=== PATIENT | male | born 1985 | race Caucasian/White ===

== ENCOUNTER 2019-03-20 19:15 | Emergency (ER) | payer MEDICAID ==
[~2019-03-20] VITALS: Ht 175.3 cm; Wt 122.0 kg
[~2019-03-20 19:15] MED LIST: METF500T PO
[2019-03-20 19:43] LABS: CLARITY,URINE CLEAR (Clear); COLOR,URINE YELLOW (Yellow); GLUCOSE, URINE >=1000 mg/dl (Neg); KETONES,URINE NEGATIVE (Neg); LEUKOCYTE ESTERASE ,URINE NEGATIVE (Neg); NITRITES, URINE NEGATIVE (Neg); OCCULT BLOOD,URINE NEGATIVE (Neg); PROTEIN,URINE TRACE mg/dl (Neg); UROBILINOGEN,URINE 0.2 E.U/dL (0.2-1.0)
[2019-03-20 19:46] LABS: UA COLLECTION TYPE VOIDED
[2019-03-20 19:50] LABS: BACTERIA,URINE FEW /HPF (Neg); RBC,URINE 0-2 /HPF (0-2); SQUAMOUS EPITHELIAL CELL,UR FEW /LPF (FEW); WBC,URINE 0-4 /HPF (0-4)
[2019-03-20 20:02] LABS: BASOPHILS # (AUTO) 0.1 X10'3 (0-0.2); BASOPHILS % (AUTO) 1.5 % (0-1); EOSINOPHILS # (AUTO) 0.1 X10'3 (0-0.9); EOSINOPHILS % (AUTO) 2.1 % (0-6); LYMPHOCYTES # (AUTO) 2.9 X10'3 (1.1-4.8); LYMPHOCYTES % (AUTO) 42.4 % (21-51); MEAN PLATELET VOLUME 7.7 FL (7.4-10.4); MONOCYTES # (AUTO) 0.5 X10'3 (0-0.9); MONOCYTES % (AUTO) 6.7 % (2-12); NEUTROPHILS # (AUTO) 3.2 X10'3 (1.8-7.7); NEUTROPHILS % (AUTO) 47.3 % (42-75); PLATELET COUNT 253 X10'3 (140-440); RED BLOOD COUNT 4.93 X10'6 (4.70-6.10); WHITE BLOOD COUNT 6.8 X10'3 (4.5-11.0)
[2019-03-20] MEDS ORDERED: normal saline 1000ML IV soln IVB ONE ×2 (20:10→20:50)
[2019-03-20 20:21] LABS: HEMOGLOBIN 16.7 g/dl (14.0-17.9)
[2019-03-20 20:22] LABS: HEMATOCRIT 47.9 % (42.0-52.0); MEAN CORPUSCULAR HEMOGLOBIN 32.2 PG (27.0-31.0); MEAN CORPUSCULAR HGB CONC 34.9 g/dL (33.0-36.5); MEAN CORPUSCULAR VOLUME 92.4 FL (78-98); RED CELL DISTRIBUTION WIDTH 13.4 % (11.5-14.5)
[2019-03-20 20:33] LABS: ALANINE AMINOTRANSFERASE 234 U/L (12-78); ALBUMIN 3.7 G/DL (3.4-5.0); ALBUMIN/GLOBULIN RATIO 0.8 (1.1-1.5); ALKALINE PHOSPHATASE 198 IU/L (46-116); ANION GAP 14 (8-16); ASPARTATE AMINO TRANSFERASE 107 U/L (10-37); BILIRUBIN,TOTAL 0.3 MG/DL (0.1-1.0); BLOOD UREA NITROGEN 13 MG/DL (7-18); BUN/CREATININE RATIO 13.7 (5.4-32.0); CALCIUM 9.3 MG/DL (8.5-10.1); CHLORIDE 98 MMOL/L (99-107); CREATININE 0.95 MG/DL (0.60-1.10); POTASSIUM 4.6 MMOL/L (3.5-5.1); SODIUM 132 MMOL/L (135-145); TOTAL PROTEIN 8.2 G/DL (6.4-8.2); eGFR > 90 ML/MIN
[2019-03-20] MEDS ORDERED: insulin regular, human 10 units/0.1 ml syringe IV ONE ×2 (20:50)
[2019-03-20] MEDS ORDERED: ondansetron/PF 4mg/2ml inj IV ONE (20:50)
[2019-03-20 20:55] LABS: GLUCOSE 590 MG/DL (70-104)
--- NOTE | 2019-03-20 21:47 | NUR ---
PER DR MARQUES ONLY 3 LITERS OF FLUIDS GIVEN
--- NOTE | 2019-03-20 22:24 | NUR ---
ASSUMED CARE OF PT , WHO IS LYING ON HIS SIDE WATCHING TV ONM HIS PHONE IVF NS TO RIGHT ARM PATETFARHANE WITHOUT INCIDENT REPEATED BLOOD SUGAR CURRENTLY AT [address] MARQUES
[2019-03-20 22:45] VITALS: BP 128/70
== END 2019-03-20 22:48 | disposition home or self-care (01) ==
LOC: ER 19:15
DX: E11.65 Type 2 diabetes mellitus with hyperglycemia (principal)
CPT/HCPCS: 36415; 80053; 81001; 82948; 85025; 85610; 96361; 96374; 96375; 96376; 99283; J1815; J2405; J7030

== ENCOUNTER 2019-06-07 10:17 | Emergency (ER) | payer MEDICAID ==
[~2019-06-07] VITALS: Ht 175.3 cm; Wt 116.5 kg
--- NOTE | 2019-06-07 11:08 | NUR ---
PT OUT TO CT VIA WHEELCHAIR WITH DITCHING MACHINE ENGINEER
[2019-06-07 11:39] LABS: BASOPHILS # (AUTO) 0.1 X10'3 (0-0.2); EOSINOPHILS # (AUTO) 0.2 X10'3 (0-0.9); EOSINOPHILS % (AUTO) 1.6 % (0-6); HEMATOCRIT 46.3 % (42.0-52.0); LYMPHOCYTES # (AUTO) 2.7 X10'3 (1.1-4.8); LYMPHOCYTES % (AUTO) 26.2 % (21-51); MEAN PLATELET VOLUME 7.4 FL (7.4-10.4); MONOCYTES # (AUTO) 0.7 X10'3 (0-0.9); NEUTROPHILS # (AUTO) 6.5 X10'3 (1.8-7.7); NEUTROPHILS % (AUTO) 64.2 % (42-75); PLATELET COUNT 269 X10'3 (140-440); RED BLOOD COUNT 5.09 X10'6 (4.70-6.10); WHITE BLOOD COUNT 10.2 X10'3 (4.5-11.0)
--- NOTE | 2019-06-07 11:39 | NUR ---
PT RETURNS FROM CT
[2019-06-07] MEDS ORDERED: ketorolac trometh. 30mg/ml inj. IV ONE (11:40)
[2019-06-07] MEDS ORDERED: carBAMazepine Ext. Release 200 MG TAB.ER.12H PO SCH (11:40)
[2019-06-07 11:52] LABS: ALANINE AMINOTRANSFERASE 99 U/L (12-78); ALBUMIN 3.4 G/DL (3.4-5.0); ALBUMIN/GLOBULIN RATIO 0.9 (1.1-1.5); ALKALINE PHOSPHATASE 153 IU/L (46-116); ANION GAP 9 (8-16); BILIRUBIN,TOTAL 0.3 MG/DL (0.1-1.0); BLOOD UREA NITROGEN 10 MG/DL (7-18); BUN/CREATININE RATIO 16.7 (5.4-32.0); CALCIUM 8.4 MG/DL (8.5-10.1); CHLORIDE 100 MMOL/L (99-107); ETHANOL < 0.010 GM/DL (0.0-0.010); SODIUM 133 MMOL/L (135-145); TOTAL CARBON DIOXIDE 24.5 MMOL/L (24-32); TOTAL PROTEIN 7.3 G/DL (6.4-8.2); eGFR > 90 ML/MIN
[2019-06-07 11:55] LABS: GLUCOSE 352 MG/DL (70-104); POTASSIUM 4.3 MMOL/L (3.5-5.1)
[2019-06-07 11:56] LABS: HEMOGLOBIN 15.9 g/dl (14.0-17.9); MEAN CORPUSCULAR HEMOGLOBIN 32.1 PG (27.0-31.0); MEAN CORPUSCULAR HGB CONC 35.1 g/dL (33.0-36.5)
[2019-06-07 11:57] LABS: PARTIAL THROMBOPLASTIN TIME 24 SECONDS (22-32)
--- NOTE | 2019-06-07 12:08 | NUR ---
PT CO FEELING LIKE HE HAS A FEVER. oRAL JEROD 99.2
[2019-06-07 12:09] VITALS: BP 167/99
[2019-06-07 12:12] LABS: ASPARTATE AMINO TRANSFERASE 21 U/L (10-37)
[2019-06-07] MEDS ORDERED: normal saline 1000ML IV soln IVB ONE (12:15)
[2019-06-07] MEDS ORDERED: insulin regular, human 10 units/0.1 ml syringe SQ ONE (12:15)
[2019-06-07 12:50] LABS: CLARITY,URINE CLEAR (Clear); COLOR,URINE YELLOW (Yellow); GLUCOSE, URINE >=1000 mg/dl (Neg); KETONES,URINE 15 mg/dl (Neg); LEUKOCYTE ESTERASE ,URINE NEGATIVE (Neg); NITRITES, URINE NEGATIVE (Neg); OCCULT BLOOD,URINE TRACE-INTACT (Neg); PROTEIN,URINE 100 mg/dl (Neg); UA COLLECTION TYPE URINAL; UROBILINOGEN,URINE 0.2 E.U/dL (0.2-1.0)
[2019-06-07 12:57] LABS: BACTERIA,URINE NONE SEEN /HPF (Neg); MUCUS STRANDS NONE SEEN /LPF (Neg); RBC,URINE 0-2 /HPF (0-2); SQUAMOUS EPITHELIAL CELL,UR FEW /LPF (FEW); WBC,URINE 0-4 /HPF (0-4)
[2019-06-07 13:08] LABS: URINE AMPHETAMINE SCREEN NEGATIVE (Neg); URINE BARBITUATE SCREEN NEGATIVE (Neg); URINE BENZODIAZEPINES SCREEN NEGATIVE (Neg); URINE CANNABINOID SCREEN NEGATIVE (Neg); URINE COCAINE SCREEN NEGATIVE (Neg); URINE METHADONE SCREEN NEGATIVE (Neg); URINE OPIATE SCREEN NEGATIVE (Neg); URINE PHENCYCLIDINE SCREEN NEGATIVE (Neg)
[2019-06-07] MEDS ORDERED: CARB200T PO (13:29)
[2019-06-07] MEDS ORDERED: AMOX500C2 PO (13:29)
--- NOTE | 2019-06-07 13:30 | NUR ---
PT STATES THAT HIS BLOOD SUGARS TREND IN THE 300S. PT EDUCATED TO INFOR PCP FOR BETTER BLOOD SUGAR CONTROL
== END 2019-06-07 13:47 | disposition home or self-care (01) ==
LOC: ER 10:18
DX: J32.9 Chronic sinusitis, unspecified (principal); G50.0 Trigeminal neuralgia; E11.65 Type 2 diabetes mellitus with hyperglycemia; R79.1 Abnormal coagulation profile; Z79.899 Other long term (current) drug therapy
CPT/HCPCS: 36415; 70450; 80053; 80305; 80320; 81001; 82948; 84484; 85025; 85610; 85730; 93005; 96372; 96374; 99284; J1815; J1885

== ENCOUNTER 2019-12-23 23:19 | Emergency (ER) | payer MEDICAID ==
[~2019-12-23] VITALS: Ht 175.3 cm; Wt 122.7 kg
[~2019-12-23 23:19] MED LIST changes: +CARB200T PO
[2019-12-23 23:22] VITALS: BP 168/115
== END 2019-12-24 00:22 | disposition home or self-care (01) ==
LOC: ER 23:20
DX: M79.642 Pain in left hand (principal); E11.9 Type 2 diabetes mellitus without complications; F17.200 Nicotine dependence, unspecified, uncomplicated; Z79.899 Other long term (current) drug therapy; Y08.89XA Assault by other specified means, initial encounter
CPT/HCPCS: 29125; 73130; 99283

== ENCOUNTER 2020-10-05 08:35 | Inpatient (IN) | payer MEDICAID ==
[~2020-10-05] VITALS: Ht 175.3 cm; Wt 118.2 kg
[2020-10-05] MEDS ORDERED: normal saline 1000ML IV soln IVB ONE ×2 (09:50→10:55)
[2020-10-05 10:14] LABS: BASOPHILS # (AUTO) 0.1 X10'3 (0-0.2); BASOPHILS % (AUTO) 0.5 % (0-1); EOSINOPHILS # (AUTO) 0.2 X10'3 (0-0.9); EOSINOPHILS % (AUTO) 2.1 % (0-6); HEMATOCRIT 44.3 % (42.0-52.0); HEMOGLOBIN 15.6 g/dl (14.0-17.9); LYMPHOCYTES # (AUTO) 2.4 X10'3 (1.1-4.8); LYMPHOCYTES % (AUTO) 20.5 % (21-51); MEAN CORPUSCULAR HGB CONC 35.3 g/dL (33.0-36.5); MEAN CORPUSCULAR VOLUME 90.7 FL (78-98); MEAN PLATELET VOLUME 7.6 FL (7.4-10.4); MONOCYTES # (AUTO) 1.4 X10'3 (0-0.9); MONOCYTES % (AUTO) 12.1 % (2-12); NEUTROPHILS # (AUTO) 7.5 X10'3 (1.8-7.7); NEUTROPHILS % (AUTO) 64.8 % (42-75); PLATELET COUNT 252 X10'3 (140-440); RED BLOOD COUNT 4.89 X10'6 (4.70-6.10); WHITE BLOOD COUNT 11.6 X10'3 (4.5-11.0)
[2020-10-05 10:30] LABS: ALANINE AMINOTRANSFERASE 45 U/L (12-78); ALBUMIN/GLOBULIN RATIO 0.7 (1.1-1.5); ALKALINE PHOSPHATASE 97 IU/L (46-116); ANION GAP 11 (8-16); ASPARTATE AMINO TRANSFERASE 17 U/L (10-37); BILIRUBIN,TOTAL 0.4 MG/DL (0.1-1.0); BLOOD UREA NITROGEN 10 MG/DL (7-18); BUN/CREATININE RATIO 13.5 (5.4-32.0); C-REACTIVE PROTEIN 15.34 MG/DL (0.0-0.5); CALCIUM 8.5 MG/DL (8.5-10.1); CHLORIDE 100 MMOL/L (99-107); CREATININE 0.74 MG/DL (0.60-1.10); GLUCOSE 313 MG/DL (70-104); POTASSIUM 4.5 MMOL/L (3.5-5.1); SODIUM 134 MMOL/L (135-145); TOTAL CARBON DIOXIDE 23.3 MMOL/L (24-32); TOTAL PROTEIN 7.2 G/DL (6.4-8.2); eGFR > 90 ML/MIN
[2020-10-05] MEDS ORDERED: insulin regular, human 10 units/0.1 ml syringe SQ ONE (10:55)
[2020-10-05] MEDS ORDERED: cephalexin 250mg capsule PO ONE (11:20)
[2020-10-05] MEDS ORDERED: clotrimazole topical cream 15gm tube TP STA (11:20)
[2020-10-05] MEDS ORDERED: HYDROcodone/acetaminophen 5mg/325mg tablet PO ONE (11:55)
[2020-10-05] MEDS ORDERED: vancomycin/NS 1 GM ADD-VANTAGE 250 ML IV ONE (12:15)
[2020-10-05] MEDS ORDERED: piperacillin/tazo 3.375gm/50ml 50 ML IV ONE (12:15)
--- NOTE | 2020-10-05 12:57 | NUR ---
CALLED "BROTHER" JT FOR PATIENT [phone]
[2020-10-05] MEDS ORDERED: potassium Cl 40MEQ/1/2NS 520ml 520 ML IV PRN ×2 (13:05)
[2020-10-05] MEDS ORDERED: potassium Cl 20 mEq SR tablet PO PRN ×2 (13:05)
[2020-10-05] MEDS: normal saline 1000ml 1,000 ML IV SCH ×2 (13:05→23:05)
[2020-10-05] MEDS ORDERED: morphine 2 MG/ML inj. syringe IV PRN (13:05)
[2020-10-05] MEDS ORDERED: ondansetron/PF 4mg/2ml inj IV PRN (13:05)
[2020-10-05] MEDS ORDERED: magnesium 2GM in 50ml NS 50 ML IV PRN (13:05)
[2020-10-05] MEDS ORDERED: magnesium 4gm in 100ml NS 100 ML IV PRN (13:05)
[2020-10-05] MEDS ORDERED: acetaminophen 325mg tablet PO PRN (13:05)
[2020-10-05] MEDS ORDERED: magnesium Cl slow-release 64mg tablet PO PRN (13:05)
--- NOTE | 2020-10-05 13:34 | NUR ---
WU CALLED AND UPDATED [phone] CELL
[2020-10-05] MEDS ORDERED: SULF1TAB45 PO (14:14)
[2020-10-05] MEDS ORDERED: INSU100I31 SQ (14:14)
[2020-10-05] MEDS ORDERED: METF-950 PO (14:14)
[2020-10-05] MEDS ORDERED: LISI10TA27 PO (14:14)
[2020-10-05] MEDS ORDERED: MUPI22OI30 TOP (14:14)
--- NOTE | 2020-10-05 15:00 | NUR ---
brother brought patient a wopper burger which he ate
--- NOTE | 2020-10-05 16:35 | NUR ---
attempted to call report
--- NOTE | 2020-10-05 16:46 | NUR ---
called report to wendy lovett on surgical floor, patient going to room 357b
--- NOTE | 2020-10-05 16:48 | NUR ---
Patient in room ED 11. I have received report from KAMALJIT Vicente and had the opportunity to ask questions and assume patient care.
[2020-10-05] MEDS: HYDROcodone/acetaminophen 5mg/325mg tablet PO PRN ×2 (16:52→21:30)
[2020-10-05] MEDS ORDERED: dextrose ORAL solution 15 GM/59 ML bottle PO PRN ×2 (17:45)
[2020-10-05] MEDS ORDERED: MESSAGE TO PHARMACY PO ONE (17:45)
[2020-10-05] MEDS ORDERED: dextrose 50%-water 50ml dispensing syringe IV PRN ×2 (17:45)
[2020-10-05] MEDS ORDERED: glucagon, human recombinant 1mg kit SUBCUT PRN (17:45)
[2020-10-05 17:59] VITALS: BP 142/93
[2020-10-05 18:30] VITALS: BP 136/87
--- NOTE | 2020-10-05 18:30 | NUR ---
Patient in room [facility] 357. I have received report from Laura MARI and had the opportunity to ask questions and assume patient care.
--- NOTE | 2020-10-05 19:26 | NUR ---
Problems reprioritized. Patient report given, questions answered & plan of care reviewed with Enrique Aviles.
[2020-10-05] MEDS: K and/or MAG REPLACEMENT MC SCH (19:59)
[2020-10-05] MEDS: insulin Lispro (HumaLOG) vial - multi-dose SQ SCH ×2 (20:17→22:16)
[2020-10-05] MEDS: vancomycin/NS 1 GM ADD-VANTAGE 250 ML IV SCH (20:20)
--- NOTE | 2020-10-05 20:20 | NUR ---
Late dinner and nutrition only covered d/t accu check being taken 2 hrs earlier. Patient in agreement.
[2020-10-05] MEDS ORDERED: temazepam 15mg capsule PO PRN (21:00)
[2020-10-05] MEDS: mupirocin 2% ointment 22GM TP SCH (21:31)
[2020-10-05] MEDS: insulin glargine (Lantus) pen - multi-dose SQ SCH (22:18)
[2020-10-06] VITALS: BP 111/64
[2020-10-06] MEDS: normal saline 1000ml 1,000 ML IV SCH ×3 (02:17→18:18)
[2020-10-06] MEDS: HYDROcodone/acetaminophen 5mg/325mg tablet PO PRN ×3 (02:18→19:02)
[2020-10-06] MEDS: vancomycin/NS 1 GM ADD-VANTAGE 250 ML IV SCH ×3 (04:32→21:19)
[2020-10-06 06:20] LABS: BASOPHILS # (AUTO) 0.1 X10'3 (0-0.2); BASOPHILS % (AUTO) 0.5 % (0-1); EOSINOPHILS # (AUTO) 0.4 X10'3 (0-0.9); EOSINOPHILS % (AUTO) 3.7 % (0-6); HEMATOCRIT 40.7 % (42.0-52.0); HEMOGLOBIN 14.3 g/dl (14.0-17.9); LYMPHOCYTES # (AUTO) 3.2 X10'3 (1.1-4.8); LYMPHOCYTES % (AUTO) 28.2 % (21-51); MEAN CORPUSCULAR HEMOGLOBIN 32.1 PG (27.0-31.0); MEAN CORPUSCULAR HGB CONC 35.1 g/dL (33.0-36.5); MEAN CORPUSCULAR VOLUME 91.5 FL (78-98); MEAN PLATELET VOLUME 7.9 FL (7.4-10.4); MONOCYTES # (AUTO) 1.1 X10'3 (0-0.9); MONOCYTES % (AUTO) 9.2 % (2-12); NEUTROPHILS # (AUTO) 6.7 X10'3 (1.8-7.7); NEUTROPHILS % (AUTO) 58.4 % (42-75); PLATELET COUNT 262 X10'3 (140-440); RED BLOOD COUNT 4.45 X10'6 (4.70-6.10); RED CELL DISTRIBUTION WIDTH 13.2 % (11.5-14.5); WHITE BLOOD COUNT 11.5 X10'3 (4.5-11.0)
[2020-10-06 06:27] LABS: ALBUMIN 2.6 G/DL (3.4-5.0); ANION GAP 10 (8-16); CHLORIDE 104 MMOL/L (99-107); CREATININE 0.53 MG/DL (0.60-1.10); GLUCOSE 181 MG/DL (70-104); MAGNESIUM 1.8 MG/DL (1.5-2.4); POTASSIUM 3.9 MMOL/L (3.5-5.1); SODIUM 138 MMOL/L (135-145); TOTAL CARBON DIOXIDE 24.4 MMOL/L (24-32); eGFR > 90 ML/MIN
[2020-10-06 06:33] LABS: BLOOD UREA NITROGEN 9 MG/DL (7-18)
--- NOTE | 2020-10-06 06:41 | NUR ---
Patient in room [facility] 345. I have received report from JOCY MARI and had the opportunity to ask questions and assume patient care.
--- NOTE | 2020-10-06 06:45 | NUR ---
Problems reprioritized. Patient report given, questions answered & plan of care reviewed with Jeremiah RN.
[2020-10-06 07:44] VITALS: BP 166/101
[2020-10-06] MEDS ORDERED: insulin glargine (Lantus) pen - multi-dose SQ SCH (08:00)
[2020-10-06] MEDS: K and/or MAG REPLACEMENT MC SCH ×2 (08:00→19:17)
[2020-10-06] MEDS: mupirocin 2% ointment 22GM TP SCH ×3 (08:13→21:21)
[2020-10-06] MEDS: lisinopril 10 MG tablet PO SCH (08:13)
[2020-10-06] MEDS: insulin Lispro (HumaLOG) vial - multi-dose SQ SCH ×4 (09:17→21:34)
[2020-10-06 11:00] VITALS: BP 134/92
[2020-10-06] MEDS ORDERED: VANCOMYCIN LEVEL IV ONE (12:30)
--- NOTE | 2020-10-06 13:59 | NUR ---
DM/Malnutrition Consults: Pt admit DX L foot cellulitis per EMR. Hx DM now insulin dependent w/ Lantus and metformin on med rec per EMR. Pt seen by RD for written/verbal DM ed w/ RD contact information provided. Pt very passive clearly non-compliant w/ DM management stating he "eats what he wants and not what anyone tells him as I'm my own man". Pt requests carb controlled diet be removed by MD and reports will be ordering takeout instead of following DM diet this admit; also reports baseline GLU in 400's typically at home. RD encouraged pt to follow DM diet guidelines, check GLU routinely and takes DM meds per Rx. Pt appears well-developed/well-nourished during RD visit, PO 50-75% avg first 2 meals though sodas from outside also at bedside likely impacting meal PO given non-compliance. Lacks minimum two malnutrition criteria at this time. Addendum: 10/06/20 at [address] Amended: Links added.
--- NOTE | 2020-10-06 18:27 | NUR ---
Problems reprioritized. Patient report given, questions answered & plan of care reviewed with Traci MARI.
--- NOTE | 2020-10-06 18:30 | NUR ---
Patient in room [facility] 357. I have received report from Jeremiha MARI and had the opportunity to ask questions and assume patient care.
[2020-10-06] MEDS: lactobacillus rhamnosus 10,000 MMU CELLS/CAPSULE PO SCH (19:02)
[2020-10-06 19:30] VITALS: BP 148/77
[2020-10-06] MEDS: insulin glargine (Lantus) pen - multi-dose SQ SCH (21:37)
[2020-10-06 23:30] VITALS: BP 114/58
[2020-10-07] MEDS: HYDROcodone/acetaminophen 5mg/325mg tablet PO PRN ×2 (05:02→18:58)
[2020-10-07] MEDS: normal saline 1000ml 1,000 ML IV SCH ×2 (05:03→15:56)
[2020-10-07] MEDS: vancomycin/NS 1 GM ADD-VANTAGE 250 ML IV SCH (05:04)
[2020-10-07 05:59] LABS: BASOPHILS % (AUTO) 0.4 % (0-1); EOSINOPHILS # (AUTO) 0.4 X10'3 (0-0.9); EOSINOPHILS % (AUTO) 4.2 % (0-6); HEMATOCRIT 40.7 % (42.0-52.0); HEMOGLOBIN 14.3 g/dl (14.0-17.9); LYMPHOCYTES # (AUTO) 2.7 X10'3 (1.1-4.8); LYMPHOCYTES % (AUTO) 29.5 % (21-51); MEAN CORPUSCULAR HGB CONC 35.2 g/dL (33.0-36.5); MEAN PLATELET VOLUME 7.6 FL (7.4-10.4); MONOCYTES # (AUTO) 0.9 X10'3 (0-0.9); MONOCYTES % (AUTO) 9.9 % (2-12); NEUTROPHILS # (AUTO) 5.1 X10'3 (1.8-7.7); PLATELET COUNT 279 X10'3 (140-440); RED BLOOD COUNT 4.48 X10'6 (4.70-6.10); RED CELL DISTRIBUTION WIDTH 13.2 % (11.5-14.5)
[2020-10-07 06:00] VITALS: BP 134/84
[2020-10-07 06:17] LABS: ALBUMIN 2.5 G/DL (3.4-5.0); ANION GAP 10 (8-16); BLOOD UREA NITROGEN 6 MG/DL (7-18); BUN/CREATININE RATIO 9.5 (5.4-32.0); CALCIUM 8.2 MG/DL (8.5-10.1); CHLORIDE 103 MMOL/L (99-107); CREATININE 0.63 MG/DL (0.60-1.10); GLUCOSE 215 MG/DL (70-104); MAGNESIUM 1.8 MG/DL (1.5-2.4); SODIUM 139 MMOL/L (135-145); TOTAL CARBON DIOXIDE 25.8 MMOL/L (24-32); eGFR > 90 ML/MIN
--- NOTE | 2020-10-07 06:45 | NUR ---
Problems reprioritized. Patient report given, questions answered & plan of care reviewed with Gabriela MARI.
--- NOTE | 2020-10-07 07:12 | NUR ---
Patient in room [facility] 357B. I have received report from KAMALJIT SANDRA and had the opportunity to ask questions and assume patient care.
[2020-10-07] MEDS: lactobacillus rhamnosus 10,000 MMU CELLS/CAPSULE PO SCH ×2 (07:29→18:58)
[2020-10-07] MEDS: lisinopril 10 MG tablet PO SCH (07:29)
[2020-10-07] MEDS: mupirocin 2% ointment 22GM TP SCH ×3 (07:29→21:08)
[2020-10-07] MEDS: K and/or MAG REPLACEMENT MC SCH ×2 (07:30→20:00)
[2020-10-07] MEDS: insulin Lispro (HumaLOG) vial - multi-dose SQ SCH ×3 (09:35→21:20)
[2020-10-07 11:00] VITALS: BP 119/67
[2020-10-07] MEDS ORDERED: VANCOMYCIN LEVEL IV ONE (12:30)
[2020-10-07] MEDS ORDERED: ceFAZolin/D5W- 1GM premix 50 ML IV SCH (12:30)
[2020-10-07] MEDS: cefepime 1GM in D5W 50mL 50 ML IV SCH (14:57)
[2020-10-07] MEDS: VANCOmycin 1250MG/NS 250ml Bag 250 ML IV SCH ×2 (15:55→21:08)
--- NOTE | 2020-10-07 18:30 | NUR ---
Patient in room [facility] 357. I have received report from Gabriela MARI and had the opportunity to ask questions and assume patient care.
--- NOTE | 2020-10-07 18:36 | NUR ---
Problems reprioritized. Patient report given, questions answered & plan of care reviewed with KAMALJIT SANDRA.
[2020-10-07] MEDS: nicotine 7mg patch - 24hr TD SCH (18:55)
[2020-10-07 19:00] VITALS: BP 131/64
[2020-10-07] MEDS: insulin glargine (Lantus) pen - multi-dose SQ SCH (21:22)
[2020-10-08] VITALS: BP 122/68
[2020-10-08] MEDS: cefepime 1GM in D5W 50mL 50 ML IV SCH ×2 (00:08→07:43)
[2020-10-08] MEDS: HYDROcodone/acetaminophen 5mg/325mg tablet PO PRN ×2 (00:12→07:41)
[2020-10-08] MEDS: VANCOmycin 1250MG/NS 250ml Bag 250 ML IV SCH (03:54)
[2020-10-08 05:54] LABS: BASOPHILS # (AUTO) 0.1 X10'3 (0-0.2); BASOPHILS % (AUTO) 0.8 % (0-1); EOSINOPHILS # (AUTO) 0.3 X10'3 (0-0.9); EOSINOPHILS % (AUTO) 3.9 % (0-6); HEMATOCRIT 40.8 % (42.0-52.0); HEMOGLOBIN 14.2 g/dl (14.0-17.9); LYMPHOCYTES # (AUTO) 3.1 X10'3 (1.1-4.8); LYMPHOCYTES % (AUTO) 34.6 % (21-51); MEAN CORPUSCULAR HEMOGLOBIN 31.7 PG (27.0-31.0); MEAN CORPUSCULAR HGB CONC 34.9 g/dL (33.0-36.5); MEAN CORPUSCULAR VOLUME 90.8 FL (78-98); MEAN PLATELET VOLUME 7.4 FL (7.4-10.4); MONOCYTES # (AUTO) 0.9 X10'3 (0-0.9); MONOCYTES % (AUTO) 10.1 % (2-12); NEUTROPHILS # (AUTO) 4.5 X10'3 (1.8-7.7); NEUTROPHILS % (AUTO) 50.6 % (42-75); PLATELET COUNT 320 X10'3 (140-440); RED CELL DISTRIBUTION WIDTH 12.9 % (11.5-14.5)
[2020-10-08 06:08] LABS: ALBUMIN 2.7 G/DL (3.4-5.0); ANION GAP 11 (8-16); BLOOD UREA NITROGEN 9 MG/DL (7-18); BUN/CREATININE RATIO 16.4 (5.4-32.0); CALCIUM 8.4 MG/DL (8.5-10.1); CHLORIDE 106 MMOL/L (99-107); CREATININE 0.55 MG/DL (0.60-1.10); GLUCOSE 149 MG/DL (70-104); POTASSIUM 3.9 MMOL/L (3.5-5.1); SODIUM 141 MMOL/L (135-145); TOTAL CARBON DIOXIDE 24.4 MMOL/L (24-32); eGFR > 90 ML/MIN
--- NOTE | 2020-10-08 06:45 | NUR ---
Patient in room [facility] 357. I have received report from Traci MARI and had the opportunity to ask questions and assume patient care.
--- NOTE | 2020-10-08 06:52 | NUR ---
Problems reprioritized. Patient report given, questions answered & plan of care reviewed with Claudia MARI.
[2020-10-08 07:26] VITALS: BP 153/91
[2020-10-08] MEDS: lactobacillus rhamnosus 10,000 MMU CELLS/CAPSULE PO SCH (07:40)
[2020-10-08] MEDS: nicotine 7mg patch - 24hr TD SCH (07:42)
[2020-10-08] MEDS: lisinopril 10 MG tablet PO SCH (07:42)
[2020-10-08] MEDS: mupirocin 2% ointment 22GM TP SCH (07:43)
[2020-10-08] MEDS: insulin Lispro (HumaLOG) vial - multi-dose SQ SCH (09:19)
[2020-10-08] MEDS ORDERED: LEVO500T89 PO (09:54)
[2020-10-08 11:47] VITALS: BP 128/81
--- NOTE | 2020-10-08 12:15 | NUR ---
Pt stable and appropriate for discharge. PIV d/c'd cannula intact. Reviewed with pt all d/c instructions, meds, wound care and followup, with pt given opportunity to ask questions, answers provided and pt verbalizing understanding. Prescriptions escripted to pharmacy of choice. Pt's home meds returned to pt. Pt to call district manager primary care sales with any questions/concerns/worsening symptoms or return to nearest ED. Pt states he has all personal belongings. Pt escorted to front lobby by staff member via personal self propelled scooter. D/C'd home in private vehicle driven by friend.
[2020-10-08] MEDS ORDERED: VANCOMYCIN LEVEL IV ONE (12:30)
--- NOTE | 2020-10-09 11:22 | NUR ---
CASE MANAGEMENT DISCHARGE FOLLOW UP: Spoke with pt via telephone. Reports that he is doing okay, admits to a little pain, states that swelling/redness decreasing in foot; denies CP/palpitations, SOB, fever/chills. Verbalizes understanding of s/sx requiring further evaluation/emergent assistance. Verbalizes understanding of new, stopped and current medications. Verbalizes compliance with MD discharge instructions. Verbalizes understanding of the importance in making/keeping follow-up appointments, states will call today to set up appointment. States no further questions/concerns at this time.
== END 2020-10-08 12:15 | disposition home or self-care (01) | DRG 383 ==
LOC: ER 08:36 → ED HOLD 13:54 → EDBEDREQ 16:23 → SUR 3N 17:20
PROVIDERS: ADMIT Internal Medicine; ATTEND Internal Medicine
DX: L03.116 Cellulitis of left lower limb (principal); E11.628 Type 2 diabetes mellitus with other skin complications; Z66 Do not resuscitate; F19.90 Other psychoactive substance use, unspecified, uncomplicated; I10 Essential (primary) hypertension; B37.2 Candidiasis of skin and nail; Z79.4 Long term (current) use of insulin; Z83.3 Family history of diabetes mellitus
CPT/HCPCS: 36415; 73630; 80048; 80053; 80202; 82948; 83036; 83605; 83735; 84145; 85025; 86140; 87040; 87081; 96365; 99285; G0378; J0692; J1815; J2543; J3370; J7030

== ENCOUNTER 2021-01-21 18:17 | Emergency (ER) | payer MEDICAID ==
[~2021-01-21] VITALS: Ht 175.3 cm; Wt 113.5 kg
[~2021-01-21 18:17] MED LIST changes: -CARB200T PO; +INSU100I31 SQ; +LISI10TA27 PO; +METF-950 PO; -METF500T PO; +MUPI22OI30 TOP
[2021-01-21 18:40] VITALS: BP 167/113
[2021-01-21] MEDS ORDERED: METF-436 PO (21:26)
[2021-01-21] MEDS ORDERED: INSU100I31 SQ (21:26)
[2021-01-21] MEDS ORDERED: DOXY100C76 PO (21:26)
[2021-01-21] MEDS ORDERED: CEPH250T PO (21:26)
== END 2021-01-21 21:44 | disposition home or self-care (01) ==
LOC: ER 18:18
DX: L03.115 Cellulitis of right lower limb (principal); E10.65 Type 1 diabetes mellitus with hyperglycemia; I10 Essential (primary) hypertension; Z79.2 Long term (current) use of antibiotics; Z79.4 Long term (current) use of insulin; Z79.899 Other long term (current) drug therapy
CPT/HCPCS: 82948; 99283

== ENCOUNTER 2021-08-04 09:06 | Emergency (ER) | payer MEDICAID ==
[~2021-08-04] VITALS: Ht 175.3 cm; Wt 118.2 kg
[~2021-08-04 09:06] MED LIST changes: +METF-1203 PO; +METF-436 PO; -METF-950 PO
[2021-08-04 09:19] VITALS: BP 139/94
[2021-08-04] MEDS ORDERED: AMOX-117 PO (09:55)
[2021-08-04] MEDS ORDERED: HYDR-3972 PO (09:55)
[2021-08-04] MEDS ORDERED: VALA10002 PO (09:57)
== END 2021-08-04 10:05 | disposition home or self-care (01) ==
LOC: ER 09:19
DX: K04.7 Periapical abscess without sinus (principal); B08.4 Enteroviral vesicular stomatitis with exanthem; I10 Essential (primary) hypertension; E11.9 Type 2 diabetes mellitus without complications
CPT/HCPCS: 99283

== ENCOUNTER 2023-02-09 04:46 | Emergency (ER) | payer MEDICAID ==
[~2023-02-09] VITALS: Ht 175.3 cm; Wt 113.6 kg
[~2023-02-09 04:46] MED LIST changes: +VALA10002 PO
[2023-02-09 04:56] VITALS: PULSE 83
[2023-02-09] MEDS ORDERED: LIDOcaine Viscous 15ml cup MM ONE (05:35)
[2023-02-09] MEDS ORDERED: bisacodyl 5mg tablet.DR PO ONE (05:35)
[2023-02-09] MEDS ORDERED: ondansetron 4mg rapidly disintigrating tab PO ONE (05:35)
[2023-02-09] MEDS ORDERED: mag hydrox/Alum hydrox/simeth 30ml oral suspension PO ONE (05:35)
[2023-02-09] MEDS ORDERED: famotidine 20mg tablet PO ONE (05:35)
[2023-02-09 05:54] LABS: BILIRUBIN,URINE NEGATIVE (Neg); CLARITY,URINE CLEAR (Clear); COLOR,URINE YELLOW (Yellow); GLUCOSE, URINE >=1000 mg/dl (Neg); KETONES,URINE NEGATIVE (Neg); LEUKOCYTE ESTERASE ,URINE NEGATIVE (Neg); NITRITES, URINE NEGATIVE (Neg); OCCULT BLOOD,URINE NEGATIVE (Neg); PROTEIN,URINE 30 mg/dl (Neg)
[2023-02-09 06:02] LABS: UA COLLECTION TYPE VOIDED
[2023-02-09 06:04] LABS: BACTERIA,URINE NONE SEEN /HPF (Neg); MUCUS STRANDS NONE SEEN /LPF (Neg); RBC,URINE NONE SEEN /HPF (0-2); SQUAMOUS EPITHELIAL CELL,UR FEW /LPF (FEW); WBC,URINE 0-4 /HPF (0-4)
[2023-02-09] MEDS ORDERED: FAMO-128 PO (06:06)
[2023-02-09] MEDS ORDERED: DOCU-171 PO (06:06)
[2023-02-09 06:07] LABS: ALANINE AMINOTRANSFERASE 129 U/L (12-78); ALBUMIN/GLOBULIN RATIO 0.9 (1.1-1.5); ALKALINE PHOSPHATASE 111 IU/L (46-116); ANION GAP 9 (8-16); BILIRUBIN,TOTAL 0.4 MG/DL (0.1-1.0); BLOOD UREA NITROGEN 10 MG/DL (7-18); BUN/CREATININE RATIO 15.4 (10.0-20.0); CALCIUM 8.6 MG/DL (8.5-10.1); CHLORIDE 102 MMOL/L (99-107); CREATININE 0.65 MG/DL (0.60-1.10); GLUCOSE 343 MG/DL (70-104); LIPASE 774 U/L (73-393); SODIUM 135 MMOL/L (135-145); TOTAL CARBON DIOXIDE 24.5 MMOL/L (24-32); TOTAL PROTEIN 6.5 G/DL (6.4-8.2); eCRCL 154 ML/MIN; eGFR > 90 ML/MIN
[2023-02-09 06:15] LABS: BASOPHILS # (AUTO) 0.1 X10'3 (0-0.2); BASOPHILS % (AUTO) 1.2 % (0-1); EOSINOPHILS # (AUTO) 0.2 X10'3 (0-0.9); EOSINOPHILS % (AUTO) 2.6 % (0-6); LYMPHOCYTES # (AUTO) 2.4 X10'3 (1.1-4.8); LYMPHOCYTES % (AUTO) 39.3 % (21-51); MEAN PLATELET VOLUME 7.9 FL (7.4-10.4); MONOCYTES # (AUTO) 0.6 X10'3 (0-0.9); MONOCYTES % (AUTO) 9.2 % (2-12); NEUTROPHILS # (AUTO) 2.9 X10'3 (1.8-7.7); NEUTROPHILS % (AUTO) 47.7 % (42-75); RED CELL DISTRIBUTION WIDTH 13.7 % (11.5-14.5)
[2023-02-09 06:39] LABS: RED BLOOD COUNT 4.73 X10'6 (4.70-6.10); WHITE BLOOD COUNT 6.1 X10'3 (4.5-11.0)
[2023-02-09 06:40] LABS: HEMATOCRIT 42.3 % (42.0-52.0); MEAN CORPUSCULAR HEMOGLOBIN 31.8 PG (27.0-31.0); MEAN CORPUSCULAR HGB CONC 35.5 g/dL (33.0-36.5); MEAN CORPUSCULAR VOLUME 89.5 FL (78-98); PLATELET COUNT 222 X10'3 (140-440)
[2023-02-09 06:44] LABS: ASPARTATE AMINO TRANSFERASE 49 U/L (10-37)
[2023-02-09] MEDS ORDERED: iohexol 300mg/ml 100ml inj. ONE (07:26)
[2023-02-09] MEDS ORDERED: METF-900 PO (07:43)
--- NOTE | 2023-02-09 07:55 | NUR ---
Patient back from ct at this time
[2023-02-09 08:48] VITALS: BP 148/110; RESP 18; TEMP 98.9; O2SAT 99
== END 2023-02-09 08:52 | disposition home or self-care (01) ==
LOC: ER 04:47
DX: R10.13 Epigastric pain (principal); E11.9 Type 2 diabetes mellitus without complications; I10 Essential (primary) hypertension; Z79.899 Other long term (current) drug therapy; Z79.84 Long term (current) use of oral hypoglycemic drugs; Z79.2 Long term (current) use of antibiotics
CPT/HCPCS: 36415; 74177; 76700; 80053; 81001; 83690; 84145; 85025; 99285; J3490; Q9967

== ENCOUNTER 2023-04-15 06:17 | Emergency (ER) | payer MEDICAID ==
[~2023-04-15] VITALS: Ht 175.3 cm; Wt 113.6 kg
[~2023-04-15 06:17] MED LIST changes: +DOCU-171 PO; +FAMO-128 PO
[2023-04-15 07:06] LABS: BILIRUBIN,URINE NEGATIVE (Neg); CLARITY,URINE CLEAR (Clear); COLOR,URINE YELLOW (Yellow); GLUCOSE, URINE >=1000 mg/dl (Neg); KETONES,URINE NEGATIVE (Neg); LEUKOCYTE ESTERASE ,URINE NEGATIVE (Neg); NITRITES, URINE NEGATIVE (Neg); OCCULT BLOOD,URINE NEGATIVE (Neg); PH,URINE 6.5 (4.8-8.0); PROTEIN,URINE 100 mg/dl (Neg); UROBILINOGEN,URINE 0.2 E.U/dL (0.2-1.0)
[2023-04-15 07:11] LABS: UA COLLECTION TYPE CLN CATCH MIDSTREAM
[2023-04-15] MEDS ORDERED: morphine 2 MG/ML inj. syringe IV STA (07:12)
[2023-04-15 07:13] LABS: BACTERIA,URINE NONE SEEN /HPF (Neg); MUCUS STRANDS NONE SEEN /LPF (Neg); RBC,URINE NONE SEEN /HPF (0-2); SQUAMOUS EPITHELIAL CELL,UR FEW /LPF (FEW)
[2023-04-15] MEDS ORDERED: ondansetron/PF 4mg/2ml inj IV ONE (07:15)
[2023-04-15] MEDS ORDERED: normal saline 1000ml 1,000 ML IV ONE (07:15)
[2023-04-15 08:09] LABS: URINE AMPHETAMINE SCREEN NEGATIVE (Neg); URINE BARBITUATE SCREEN NEGATIVE (Neg); URINE BENZODIAZEPINES SCREEN NEGATIVE (Neg); URINE CANNABINOID SCREEN NEGATIVE (Neg); URINE COCAINE SCREEN NEGATIVE (Neg); URINE METHADONE SCREEN NEGATIVE (Neg); URINE OPIATE SCREEN NEGATIVE (Neg); URINE PHENCYCLIDINE SCREEN NEGATIVE (Neg)
[2023-04-15 09:15] VITALS: TEMP 97.9
[2023-04-15 09:34] LABS: BASOPHILS # (AUTO) 0.1 X10'3 (0-0.2); BASOPHILS % (AUTO) 0.9 % (0-1); EOSINOPHILS # (AUTO) 0.2 X10'3 (0-0.9); EOSINOPHILS % (AUTO) 2.8 % (0-6); HEMATOCRIT 42.1 % (42.0-52.0); HEMOGLOBIN 15.6 g/dl (14.0-17.9); LYMPHOCYTES # (AUTO) 2.7 X10'3 (1.1-4.8); LYMPHOCYTES % (AUTO) 42.7 % (21-51); MEAN CORPUSCULAR VOLUME 89.3 FL (78-98); MEAN PLATELET VOLUME 7.4 FL (7.4-10.4); MONOCYTES # (AUTO) 0.5 X10'3 (0-0.9); MONOCYTES % (AUTO) 7.9 % (2-12); NEUTROPHILS # (AUTO) 2.9 X10'3 (1.8-7.7); NEUTROPHILS % (AUTO) 45.7 % (42-75); PLATELET COUNT 203 X10'3 (140-440); RED BLOOD COUNT 4.72 X10'6 (4.70-6.10); RED CELL DISTRIBUTION WIDTH 13.2 % (11.5-14.5); WHITE BLOOD COUNT 6.4 X10'3 (4.5-11.0)
[2023-04-15 10:09] LABS: ALBUMIN/GLOBULIN RATIO 0.8 (1.1-1.5); ALKALINE PHOSPHATASE 107 IU/L (46-116); AMYLASE 46 U/L (25-115); BILIRUBIN,TOTAL 0.6 MG/DL (0.1-1.0); BLOOD UREA NITROGEN 10 MG/DL (7-18); BUN/CREATININE RATIO 19.2 (10.0-20.0); CALCIUM 7.9 MG/DL (8.5-10.1); CHLORIDE 100 MMOL/L (99-107); CREATININE 0.52 MG/DL (0.60-1.10); LIPASE 36 U/L (16-77); TOTAL CARBON DIOXIDE 22.8 MMOL/L (24-32); TOTAL PROTEIN 6.6 G/DL (6.4-8.2); eCRCL 193 ML/MIN; eGFR > 90 ML/MIN
--- NOTE | 2023-04-15 10:25 | NUR ---
CALLED LAB FOR RESULTS. LAB HAS TO CENTRIFUGE EST TIME 15 MIN
[2023-04-15 10:39] LABS: PLATELET ESTIMATE NORMAL; SPHEROCYTES 2+
[2023-04-15] MEDS ORDERED: METF-436 PO (11:00)
[2023-04-15 11:04] LABS: ALANINE AMINOTRANSFERASE 154 U/L (12-78); ANION GAP 9 (8-16); ASPARTATE AMINO TRANSFERASE 101 U/L (10-37); GLUCOSE 303 MG/DL (70-104); POTASSIUM 4.2 MMOL/L (3.5-5.1); SODIUM 132 MMOL/L (135-145)
[2023-04-15 11:20] VITALS: BP 144/100; PULSE 84; RESP 18; O2SAT 97
== END 2023-04-15 11:23 | disposition home or self-care (01) ==
LOC: ER 06:18
DX: R10.13 Epigastric pain (principal); R74.01 Elevation of levels of liver transaminase levels; E11.65 Type 2 diabetes mellitus with hyperglycemia; I10 Essential (primary) hypertension; Z79.899 Other long term (current) drug therapy
CPT/HCPCS: 36415; 76700; 80053; 80305; 81001; 82150; 82948; 83690; 85008; 85025; 87088; 96374; 96375; 99285; J2270; J2405; J7030

== ENCOUNTER 2023-11-15 13:27 | Emergency (ER) | payer MEDICAID ==
[~2023-11-15] VITALS: Ht 175.3 cm; Wt 106.9 kg
[2023-11-15 13:36] VITALS: TEMP 97.8
[2023-11-15 14:00] LABS: BILIRUBIN,URINE SMALL (Neg); CLARITY,URINE SLIGHTLY CLOUDY (Clear); COLOR,URINE YELLOW (Yellow); GLUCOSE, URINE 500 mg/dl (Neg); KETONES,URINE NEGATIVE (Neg); LEUKOCYTE ESTERASE ,URINE NEGATIVE (Neg); NITRITES, URINE NEGATIVE (Neg); OCCULT BLOOD,URINE TRACE-INTACT (Neg); PH,URINE 6.5 (4.8-8.0); PROTEIN,URINE >=300 mg/dl (Neg)
[2023-11-15 14:05] LABS: UA COLLECTION TYPE CLN CATCH MIDSTREAM
[2023-11-15 14:07] LABS: MUCUS STRANDS MANY /LPF (Neg); SPERM MODERATE /HPF (NEGATIVE); SQUAMOUS EPITHELIAL CELL,UR MODERATE /LPF (FEW)
[2023-11-15 14:08] LABS: TRANSITIONAL EPI CELLS,URINE FEW /HPF
[2023-11-15 14:09] LABS: BACTERIA,URINE FEW /HPF (Neg)
[2023-11-15 15:19] LABS: BASOPHILS # (AUTO) 0.3 X10'3 (0-0.2); BASOPHILS % (AUTO) 2.6 % (0-1); EOSINOPHILS % (AUTO) 0.4 % (0-6); HEMATOCRIT 44.9 % (42.0-52.0); HEMOGLOBIN 15.8 g/dl (14.0-17.9); LYMPHOCYTES # (AUTO) 1.5 X10'3 (1.1-4.8); LYMPHOCYTES % (AUTO) 11.7 % (21-51); MEAN CORPUSCULAR HEMOGLOBIN 31.6 PG (27.0-31.0); MEAN CORPUSCULAR HGB CONC 35.3 g/dL (33.0-36.5); MEAN CORPUSCULAR VOLUME 89.5 FL (78-98); MEAN PLATELET VOLUME 7.6 FL (7.4-10.4); MONOCYTES # (AUTO) 1.2 X10'3 (0-0.9); NEUTROPHILS # (AUTO) 10.1 X10'3 (1.8-7.7); NEUTROPHILS % (AUTO) 76.3 % (42-75); PLATELET COUNT 250 X10'3 (140-440); RED BLOOD COUNT 5.02 X10'6 (4.70-6.10); WHITE BLOOD COUNT 13.2 X10'3 (4.5-11.0)
[2023-11-15 15:30] LABS: ALANINE AMINOTRANSFERASE 70 U/L (12-78); ALBUMIN 3.4 G/DL (3.4-5.0); ALBUMIN/GLOBULIN RATIO 0.8 (1.1-1.5); ALKALINE PHOSPHATASE 80 IU/L (46-116); AMYLASE 35 U/L (25-115); ANION GAP 6 (8-16); ASPARTATE AMINO TRANSFERASE 30 U/L (10-37); BILIRUBIN,TOTAL 0.8 MG/DL (0.1-1.0); BLOOD UREA NITROGEN 10 MG/DL (7-18); BUN/CREATININE RATIO 14.5 (10.0-20.0); CALCIUM 8.7 MG/DL (8.5-10.1); CHLORIDE 99 MMOL/L (99-107); CREATININE 0.69 MG/DL (0.60-1.10); GLUCOSE 190 MG/DL (70-104); LIPASE 20 U/L (16-77); POTASSIUM 3.8 MMOL/L (3.5-5.1); SODIUM 134 MMOL/L (135-145); TOTAL CARBON DIOXIDE 28.8 MMOL/L (24-32); TOTAL PROTEIN 7.7 G/DL (6.4-8.2); eCRCL 144 ML/MIN; eGFR > 90 ML/MIN
[2023-11-15] MEDS ORDERED: iohexol 300mg/ml 100ml inj. ONE (18:58)
[2023-11-15] MEDS: normal saline 1000ml 1,000 ML IV ONE (19:26)
[2023-11-15] MEDS: ondansetron/PF 4mg/2ml inj IV ONE (19:26)
[2023-11-15] MEDS: ketorolac tromethamine 15mg/ml inj. IV ONE (19:26)
[2023-11-15] MEDS: morphine 4 MG/ML inj SYRINge IV ONE (19:27)
[2023-11-15 19:55] LABS: BILIRUBIN,URINE SMALL (Neg); CLARITY,URINE SLIGHTLY CLOUDY (Clear); GLUCOSE, URINE 100 mg/dl (Neg); KETONES,URINE NEGATIVE (Neg); LEUKOCYTE ESTERASE ,URINE NEGATIVE (Neg); OCCULT BLOOD,URINE NEGATIVE (Neg); PROTEIN,URINE >=300 mg/dl (Neg)
[2023-11-15 19:57] LABS: COLOR,URINE DARK YELLOW (Yellow); NITRITES, URINE NEGATIVE (Neg); UA COLLECTION TYPE CLN CATCH MIDSTREAM
[2023-11-15 20:08] LABS: MUCUS STRANDS MANY /LPF (Neg)
[2023-11-15 20:09] LABS: BACTERIA,URINE 1+ /HPF (Neg); HYALINE CASTS 0-3 /LPF (NEGATIVE); SQUAMOUS EPITHELIAL CELL,UR MODERATE /LPF (FEW)
[2023-11-15 20:10] LABS: TRANSITIONAL EPI CELLS,URINE FEW /HPF
[2023-11-15] MEDS ORDERED: AMOX-117 PO (20:25)
[2023-11-15] MEDS: amox tr/potassium clavulanate 875/125mg TAB PO ONE (20:58)
[2023-11-15 20:59] VITALS: BP 120/89; PULSE 92; RESP 16; O2SAT 99
== END 2023-11-15 21:02 | disposition home or self-care (01) ==
LOC: ER 13:28
DX: K52.9 Noninfective gastroenteritis and colitis, unspecified (principal); R10.32 Left lower quadrant pain; I10 Essential (primary) hypertension; E11.9 Type 2 diabetes mellitus without complications; Z79.2 Long term (current) use of antibiotics; Z79.899 Other long term (current) drug therapy; Z79.84 Long term (current) use of oral hypoglycemic drugs
CPT/HCPCS: 36415; 74177; 80053; 81001; 82150; 83690; 85025; 87088; 96361; 96374; 96375; 99285; J1885; J2270; J2405; J3490; J7030; Q9967; 74176

== ENCOUNTER 2024-07-13 11:33 | Emergency (ER) | payer MEDICAID, OTHER | END 2024-07-13 13:39 | disposition left against medical advice (07) | LOC: ER 11:33 | DX: Z53.21 Procedure and treatment not carried out due to patient leaving prior to being seen by health care provider (principal) ==

== ENCOUNTER 2024-12-03 15:41 | Emergency (ER) | payer MEDICAID, OTHER ==
[~2024-12-03] VITALS: Ht 175.3 cm; Wt 104.3 kg
[2024-12-03 15:52] VITALS: BP 126/90; PULSE 99; TEMP 97.2; O2SAT 98
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
[2024-12-03 16:57] VITALS: RESP 18
[2024-12-03] MEDS: ketorolac trometh 15mg/ml vial 15 MG/ML ML IM ONE (16:57)
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
== END 2024-12-03 17:12 | disposition home or self-care (01) ==
LOC: ER 15:41
DX: Z04.1 Encounter for examination and observation following transport accident (principal); E11.9 Type 2 diabetes mellitus without complications; I10 Essential (primary) hypertension; V89.2XXA Person injured in unspecified motor-vehicle accident, traffic, initial encounter; Y93.89 Activity, other specified; Y92.410 Unspecified street and highway as the place of occurrence of the external cause; Y99.8 Other external cause status
CPT/HCPCS: 71101; 96372; 99283; J1885